=== PATIENT | male | born 1950 | race Caucasian/White ===

== ENCOUNTER 2021-09-13 00:27 | Emergency (ER) | payer MEDICARE, OTHER ==
[2021-09-13 02:23] VITALS: BP 133/62; PULSE 70
[2021-09-13] MEDS ORDERED: Ketorolac 30 MG/ML SDV IM ONE (02:45)
== END 2021-09-13 03:56 | disposition home or self-care (01) ==
LOC: DL.ED 00:27
DX: N20.2 Calculus of kidney with calculus of ureter (principal); E78.00 Pure hypercholesterolemia, unspecified; I10 Essential (primary) hypertension; E11.21 Type 2 diabetes mellitus with diabetic nephropathy; Z79.4 Long term (current) use of insulin; Z79.82 Long term (current) use of aspirin; Z79.899 Other long term (current) drug therapy
CPT/HCPCS: 74176; 81001; 82947; 96372; 99284; 99284-25